=== PATIENT | male | born 1995 | race Caucasian/White ===

== ENCOUNTER 2017-03-23 10:33 | Emergency (ER) | payer OTHER ==
[2017-03-23] MEDS ORDERED: NS 1,000 ML IV ONE (11:14)
[2017-03-23] MEDS ORDERED: ONDANSETRON 4 MG/2 ML VIAL IVP ONE (11:27)
--- NOTE | 2017-03-23 11:29 | EDPHY ---
H & P Stated Complaint: fever/ryder/low back pain/sent from [facility] to r/o meningitis Source: Patient, Family Exam Limitations: No limitations - Personal History Current Tetanus/Diphtheria Vaccine: Yes - Medical/Surgical History Hx Asthma: No Hx Chronic Respiratory Disease: No Hx Diabetes: No Hx Cardiac Disease: No Hx Renal Disease: No Hx Cirrhosis: No Hx Alcoholism: No Hx HIV/AIDS: No Hx Splenectomy or Spleen Trauma: No Other PMH: migraines - Social History Smoking Status: Never smoked HPI/ROS: CHIEF COMPLAINT: Headache, fever, low back pain HISTORY OF PRESENT ILLNESS: REVIEW OF SYSTEMS: Ten systems reviewed and are negative unless otherwise noted in the HPI PERTINENT MEDICAL HISTORY: EXAMINATION General Appearance: Alert, no distress Head: normocephalic, atraumatic Eyes: Pupils equal and round, no conjunctival pallor or injection ENT, Mouth: Mucous membranes moist . Uvula midline. No erythema or edema. Minimal posterior erythema. Airway is widely patent. Trachea midline. Neck: Normal inspection, supple, non-tender. Painless range of motion all planes. No rigidity. Negative Kernig. Negative Brudzinski. Respiratory: Lungs are clear to auscultation . No wheezing, rhonchi or crackles Cardiovascular: Regular rate and rhythm . No murmur. Pulses intact distally. Gastrointestinal: Abdomen is soft and nontender . No tympany rigidity. No splenomegaly. Back: Mild tenderness in the lumbar paraspinous musculature. No midline tenderness At any level. No crepitus, step-off or deformity. Neurological: A&O, nonfocal, normal gait . GCS 15. Strength is symmetric in all 4 limbs. Patellar reflexes are symmetric. No pronator drift. No dysmetria. Skin: Warm and dry, no rash . No petechiae or purpura. Extremities: Nontender, no pedal edema Psychiatric: Mood and affect normal DIFFERENTIAL DIAGNOSES: Including but not limited to Influenza, mononucleosis, viral illness, meningitis, pneumonia, migraine, headache MDM: 11:20 a.m. fever, headache and low back pain. The patient has not had any neck pain. He has no nuchal rigidity or meningismus on examination. He has mild tachycardia but no fever here. He was febrile at [facility]. Examination reveals no other acute findings. Laboratory studies have been ordered. 1:30 p.m. patient is positive for influenza B. He has no nuchal rigidity or meningismus signs. He does have low back pain that is soft tissue paravertebral. No point tenderness of the lumbar vertebrae. No leukocytosis. Laboratory studies are otherwise within normal limits. He was evaluated by Dr. Rodarte. he ordered a CT scan of the head that is returned without any acute findings. I discussed the above findings with the patient and his parents at bedside. I discussed discharge home with analgesia for the back pain and body aches. He is to increase his fluid intake and anti-inflammatories over the next few days. He is to rest as much as possible. He is to return to the emergency department immediately for any neck pain or stiffness, worsening headache or retractor a fever. Patient is comfortable with this plan and discharged home stable condition. SUPERVISION: Patient was evaluated in conjunction with the supervising physician. Please see their note for details. (Michele Salazar) Constitutional: Initial Vital Signs Temperature (C) 99.7 F 03/23/17 10:46 Heart Rate 105 H 03/23/17 10:46 Respiratory Rate 20 03/23/17 10:46 Blood Pressure 91/77 L 03/23/17 10:46 O2 Sat (%) 94 03/23/17 10:46 O2 Delivery Mode Room Air Allergies/Adverse Reactions: amoxicillin [From Augmentin] Allergy (Verified 03/23/17 10:45) azithromycin Allergy (Verified 03/23/17 10:45) clavulanic acid [From Augmentin] Allergy (Verified 03/23/17 10:45) erythromycin base Allergy (Verified 03/23/17 10:46) Home Medications: Medication Instructions Recorded Hydrocodone/APAP 5/325 [[place] 1 - 2 tab PO Q4H PRN #14 tab 03/23/17 5/325 (*)] Oseltamivir Phosphate [Tamiflu 75 75 mg PO BID #10 cap 03/23/17 mg (*)] ZYRTEC 03/23/17 Medical Decision Making - Diagnostics Imaging Results: Normal head CT per Dr. Leslie at 12:27 p.m. (Nick Rodarte) Other Provider: PHYSICIAN DOCUMENTATION: The patient was evaluated and managed by the Physician Treating Machine Operator and myself. I have reviewed the chart and agree with the findings and plan of care as documented. In addition, I examined the patient myself at 1155. History confirmed as non thunderclap nontraumatic headache, slightly different than previous migraine headaches, no history of intracranial imaging. Was 1st diagnosed with migraines in 8th grade. Physical findings as follows: Alert, nontoxic, afebrile. Neck is full range of motion and no stiffness. No skin rash. Pharynx and tympanic membranes are normal. Discussed with mother that I think potential harm from spinal tap outweighs potential benefit at this point in time. Plan for imaging with new headache.. I am the secondary supervising physician. (Nick Rodarte) - Data Points Laboratory Results: Laboratory Results 03/23/17 11:05 03/23/17 11:05 Medications Given: Discontinued Medications Sodium Chloride (Ns) 1,000 mls @ 0 mls/hr IV ONCE ONE PRN Reason: Wide Open Stop: 03/23/17 11:15 Last Admin: 03/23/17 11:14 Dose: 1,000 mls Morphine Sulfate (Morphine) 4 mg IVP EDNOW ONE Stop: 03/23/17 11:39 Last Admin: 03/23/17 11:52 Dose: 4 mg Ondansetron HCl (Zofran) 4 mg IVP EDNOW ONE Stop: 03/23/17 11:28 Last Admin: 03/23/17 11:52 Dose: 4 mg Departure - Departure Disposition: Home, Routine, Self-Care Clinical Impression: Influenza B Condition: Good Instructions: Influenza (ED) Additional Instructions: Medications as discussed. Follow up primary care physician. Return here for any neck pain or stiffness, worsening headache, persistent fever Referrals: MAURI GRIGSBY [Other] - As per Instructions Stand Alone Forms: School Excuse Prescriptions: Hydrocodone/APAP 5/325 [[place] 5/325 (*)] 1 - 2 tab PO Q4H PRN #14 tab PRN Reason: Pain, Moderate Oseltamivir Phosphate [Tamiflu 75 mg (*)] 75 mg PO BID #10 cap
[2017-03-23 11:37] LABS: % IMMATURE GRANULYOCYTES 0.3 % (0.0-1.1); ABSOLUTE IMMATURE GRANULOCYTES 0.02 10^3/uL (0.00-0.10); ADD DIFF? NO; ADD MORPH? NO; ADD SCAN? NO; ATYPICAL LYMPHOCYTE FLAG 10 (0-99); FRAGMENT RBC FLAG 0 (0-99); HEMATOCRIT 42.1 % (40.0-51.0); LEFT SHIFT FLG 0 (0-99); LIPEMIA HEMOLYSIS FLAG 90 (0-99); MEAN CELL HEMOGLOBIN 29.7 pg (27.9-34.1); MEAN CELL HEMOGLOBIN CONCENTR. 35.6 g/dL (32.4-36.7); MEAN CELL VOLUME 83.4 fL (81.5-99.8); PLATELET CLUMPS FLAG 10 (0-99); PLATELET COUNT 256 10^3/uL (150-400); RED BLOOD CELL COUNT 5.05 10^6/uL (4.40-6.38); RED CELL DISTRIBUTION WIDTH 12.7 % (11.5-15.2)
[2017-03-23 11:46] LABS: ANION GAP 11 mEq/L (8-16); CALCIUM 9.6 mg/dL (8.5-10.4); CARBON DIOXIDE 22 mEq/l (22-31); CHLORIDE 105 mEq/L (97-110); CREATININE 0.8 mg/dL (0.7-1.3); GLOMERULAR FILTRATION RATE > 60; GLUCOSE 109 mg/dL (70-100); POTASSIUM 4.1 mEq/L (3.5-5.2); SODIUM 138 mEq/L (134-144)
[2017-03-23 14:02] VITALS: BP 103/51; PULSE 100; RESP 16; TEMP 100; O2SAT 99
== END 2017-03-23 13:45 | disposition home or self-care (01) ==
DX: J10.1 Influenza due to other identified influenza virus with other respiratory manifestations (principal)
CPT/HCPCS: 96374; J2405